=== PATIENT | male | born 1975 | race Caucasian/White ===

== ENCOUNTER 2019-03-07 10:00 | Emergency (ER) | payer BC ==
--- NOTE | 2019-03-07 10:53 | EDPHY ---
General Time Seen by Provider: 03/07/19 10:53 Narrative: CLINICAL IMPRESSION: Left Achilles injury ASSESSMENT/PLAN: Patient is a 44-year-old male with no significant medical history who presents to the emergency department complaining of left Achilles pain after he accelerated playing basketball. Patient is well-appearing, no acute distress. Physical examination reveals tenderness to palpation along the left Achilles tendon, unable to definitively palpate the tendon. He is unable to plantar flex , physical examination is consistent with likely left Achilles tendon rupture. His calf compartment is soft without evidence of compartment syndrome. This was not an inversion, eversion or direct impact injury, I do not suspect fracture, dislocation or bony injury. The patient was placed in a Rodriguez boot with neutral to slightly plantar flexed position, CMS intact post splint placement. He was also provided crutches and will remain nonweightbearing until follow-up with Orthopedic surgery. Patient declined need for pain medication in the emergency department, he was given a prescription for [place] for severe pain at home. Orthopedic referral given, he will call 1st thing Saturday morning to schedule follow-up. Return precautions discussed-patient to return to the emergency Department for significantly worsening or uncontrolled pain, significant swelling, numbness or tingling of the extremity, paleness or coolness of his digits, fever or for any other concerning symptom. The patient verbalizes understanding and he is in agreement with this plan. DIFFERENTIAL DX: Differential diagnosis including but not limited to fracture, dislocation, partial tendon rupture, complete tendon rupture, compartment syndrome ED PROCEDURES: Procedure: Splint placement. A Rodriguez boot splint was applied. After application of the splint I returned and re-examined the patient. The splint was adequately immobilizing the joint and distal to the splint the patient's circulation and sensation was intact. ED COURSE: 1129: Case discussed with Dr. Rachel, will place patient in Rodriguez boot in neutral to slightly plantar flex position. Follow-up with Orthopedic surgery. CHIEF COMPLAINT: Left Achilles pain HPI: Patient is a 44-year-old male with no significant medical history presents to the emergency department with complaints of left Achilles pain and popping sensation after he accelerated while playing basketball. Patient reports he went to accelerate for a ball when he felt immediate pain in his left Achilles tendon area with significant pain at that site. He was able to ambulate however it does cause increased pain. He denies any deformity. He denies an inversion or eversion injury, he denies any ankle pain. There was no direct trauma or below. Patient denies any surgery or previous injury to this ankle. He has some pain up into his calf, denies any knee pain or other injury. PAST MEDICAL HISTORY: Denies Family History: Not contributory Social History: Denies illicit drug use or cigarette smoking ROS: A full 10 point review of systems was negative except for those mentioned in HPI. PHYSICAL EXAM: General Appearance: Well-appearing, no acute distress. HENT: Normocephalic, atraumatic. External ears are normal. Nares are clear, mucosa is pink. Oropharynx is clear , dentition is normal. Eyes: PERRLA, EOMI. Conjunctiva pink, no pallor or injection. Neck: Supple, nontender, no lymphadenopathy, no midline pain, FROM, no meningismus. Respiratory: There are no retractions, lungs are clear to auscultation. Cardiac: Regular rate and rhythm, no murmurs or gallops. Gastrointestinal: Abdomen is soft, nontender, bowel sounds normal, no masses/ hernia, no rigidity, guarding or focal peritoneal findings. Skin: Warm, dry, no rashes, no nodules on palpation. Upper Extremities: Intact distal pulses, Full range of motion intact, no tenderness, no ecchymosis or edema. Bilateral upper extremities are unremarkable. Lower Extremities: Right lower extremity is unremarkable. Intact distal pulses , No edema, No tenderness, No cyanosis, full range of motion intact. Left knee is nontender with full range of motion, left calf is soft however tenderness in the mid posterior calf. Patient with tenderness to palpation along the left Achilles tendon, I am unable to definitively palpate the tendon. Patient is able to dorsiflex without issue, he is unable to plantar flex. He has no medial or lateral malleolar tenderness to palpation. Dorsalis pedis is 2 +. Two point discrimination is intact distally. MEDICAL DECISION MAKING: Patient was seen independently. Secondary supervising physician at time of evaluation was Dr. Rachel, he did not evaluate this patient however we did discuss this case. Diagnosis: Left Achilles injury. Summary: See Assessment and Plan for summary of ED visit Clinical lab tests: Not applicable. Independent visualization of images, tracing, or specimens: Not applicable. Decision to obtain medical records or history from someone other than the patient: No Review / Summarize previous medical records: Yes Discussed patient with another provider: Yes, Dr. Rachel Patient Progress: Stable, discharge. - History Smoking Status: Never smoked - Objective Vital Signs: Initial Vital Signs Temperature (C) 36.8 C 03/07/19 10:07 Heart Rate 90 03/07/19 10:07 Respiratory Rate 18 03/07/19 10:07 Blood Pressure 119/67 03/07/19 10:07 O2 Sat (%) 91 L 03/07/19 10:07 O2 Delivery Mode Room Air Allergies/Adverse Reactions: No Known Allergies Allergy (Unverified 03/07/19 10:09) Home Medications: Medication Instructions Recorded Hydrocodone/APAP 5/325 [L[place]field 1 - 2 tab PO Q6H PRN #20 tab 03/07/19 5/325 (*)] Departure - Departure Disposition: Home, Routine, Self-Care Clinical Impression: Achilles rupture, left Qualifiers: Encounter type: initial encounter Qualified Code(s): S86.012A - Strain of left Achilles tendon, initial encounter Condition: Good Instructions: Achilles Tendon Rupture (ED) Additional Instructions: DISCHARGE INSTRUCTIONS FROM YOUR DOCTOR Thank you for visiting our emergency department today. Please keep in mind that discharge from the emergency department does not mean that there is nothing wrong - it simply means that we have not identified an emergency condition that requires further evaluation or treatment in the hospital. You should always plan to follow up with primary care for re-evaluation of your condition in the next 2-3 days. If you have been referred to a specialist, please call as soon as possible (today or tomorrow) to schedule your follow up appointment at the appropriate time; please call Saturday morning to schedule an appointment with Orthopedic surgery. Rest, ice (on and off), elevate the foot and ankle as much possible above the level of the heart to decrease pain and swelling. Apply ice on and off to the painful area, whichever feels better. Wear the boot as applied. You may remove this to shower. We would like you to stay in a 90 degree position. Partial weight-bearing is okay, utilizer crutches. You have been prescribed [place] which is a narcotic. Please do not drive or operate machinery while taking this medication as it may make you drowsy. It may also be habit forming. This medication can also cause constipation, recommend taking 100 mg of Colace twice daily while taking this medication. This medication also contains Tylenol, please do not take other Tylenol containing products with this medication. For pain control: You may take Tylenol, I recommend 500-1000 mg every 6-8 hours as needed. Take with food and a full glass of water. Stop taking if this is upsetting her stomach. Do not exceed 4000 mg in a 24 hr period. You may also take ibuprofen, recommend 400 mg every 6 hr. Take with food and a full glass of water. Stop taking if this upsets her stomach. Do not exceed 2400 mg in a 24 hr period. Continue your regular medication as prescribed. Return for increased pain or swelling, numbness, tingling or foot or toes, calf pain, paleness or coolness of the foot or toes or for any worsening or worrisome symptoms. Orthopedic injuries you are at increased risk for developing a blood clot in your leg. Seek follow-up care immediately for any calf pain, redness, swellling , ankle swelling, or other concerns. Return for increased or unmanageable pain, new injury, new site of pain, numbness, tingling, weakness of the leg, coolness or discoloration of the leg/ foot/ankle, redness, swelling, fever, difficulty breathing, chest pain, calf pain, ankle swelling, severe headache, back pain, or for any other new, worsening, or worrisome symptoms. People present with illnesses and injuries in different ways, and it is always possible that we have missed something. You may always return for re-evaluation if symptoms worsen or if they are not improving or if you develop new/different symptoms. Again, thank you for choosing our emergency department. We hope that you feel better. Referrals: Chet Weston MD [Medical Doctor] - As per Instructions (Establish care with a primary care provider if you have not done so already.) Maral Clifton MD [Medical Doctor] - 2-3 days, call for appt. (Please call Saturday morning to schedule an appointment with Orthopedic surgery.) Prescriptions: Hydrocodone/APAP 5/325 [[place] 5/325 (*)] 1 - 2 tab PO Q6H PRN #20 tab PRN Reason: Pain, Severe
[2019-03-07 12:33] VITALS: BP 113/70
== END 2019-03-07 12:33 | disposition home or self-care (01) ==
DX: S86.012A Strain of left Achilles tendon, initial encounter (principal); X50.9XXA Other and unspecified overexertion or strenuous movements or postures, initial encounter; Y93.67 Activity, basketball; Y92.9 Unspecified place or not applicable; Y99.9 Unspecified external cause status
CPT/HCPCS: L4386